=== PATIENT | female | born 1955 | race Caucasian/White ===

== ENCOUNTER → 2021-11-03 | Outpatient (CLI) | payer MEDICARE ==
[2021-11-03 13:50] VITALS: BP 168/78; PULSE 71; TEMP 98.2; BMI 22.8
--- NOTE | 2021-11-03 14:45 | P.HPBAR ---
Bariatric H&P - History & Physicial H&P Date: 11/03/21 History & Physicial: Visit/CC: lap band Patient initial contact: Initial weight: Initial weight in pounds: Height: 5 ft 2 in Initial BMI: Last weight: Current weight: 56.699 kg Current weight in pounds: 125.00 Current BMI: 22.8 [place] body weight (based on NIH guidelines): 49.895 kg Excess body weight loss: The patient is a 66 year-old F who presents for Bariatric Assessment. Patient presents today for Ramirez fall. She has complaints of pain at her port site. Patient states she was leaning over her wash machine and abdominal pain. The pain is a 3 out of 10. Past Medical History Past Medical History: Hyperlipidemia, Thyroid Disorder Additional Past Medical History / Comment(s): autoimmune hepatitis with stage 4 cirrhosis, raynauds syndrome, arthritis in back, diverticulitis History of Any Multi-Drug Resistant Organisms: None Reported Past Surgical History: Appendectomy, Bariatric Surgery, Bowel Resection, Section, Cholecystectomy, Heart Catheterization, Hernia Repair, Hysterectomy, Orthopedic Surgery Additional Past Surgical History / Comment(s): lap band surgery, right foot surgeries x 2, right knee surgeries x 2 Past Anesthesia/Blood Transfusion Reactions: Previous Problems w/ Anesthesia Additional Past Anesthesia/Blood Transfusion Reaction / Comm: passed out one time after a surgery Past Psychological History: Anxiety Smoking Status: Former smoker Past Alcohol Use History: Occasional Past Drug Use History: Marijuana Surgical - Exam Vital Signs Temp Pulse BP 98.2 F 71 168/78 11/03/21 13:39 11/03/21 13:39 11/03/21 13:39 - General well developed, well nourished, no distress - Eyes PERRL - ENT normal pinna - Neck no masses - Respiratory normal expansion - Cardiovascular Rhythm: regular - Abdomen Abdomen: soft, non tender Bariatric Assessment & Plan Plan: Patient has minimal pain at her port site. I believe she may have abdominal wall strain. Patient also has some minimal GERD. This is Jorge observed. She'll follow-up in 4 weeks. Bariatric Checklist Checklist: Plan: Checklist: EGD: 1. Hiatal hernia: 2. H. Pylori: HgbA1c: Vitamin D: Smoking: Primary care physician referral: Dr. Breen Psychiatry clearance: Cardiology clearance: Sleep study: Diet journal: VTE risk score: VTE risk level: Rehab needs at discharge:
== END ==
LOC: BARWHC3 13:12
PROVIDERS: ATTEND Surgery
DX: Z09 Encounter for follow-up examination after completed treatment for conditions other than malignant neoplasm (principal); E78.5 Hyperlipidemia, unspecified; Z98.84 Bariatric surgery status; F41.9 Anxiety disorder, unspecified; Z87.891 Personal history of nicotine dependence; K21.9 Gastro-esophageal reflux disease without esophagitis
CPT/HCPCS: 99212